=== PATIENT | female | born 1985 | race African-American/Black ===

== ENCOUNTER 2016-05-24 09:15 | Emergency (ER) | payer SELFPAY ==
[2016-05-24] MEDS ORDERED: DUONEB INH ONE (10:08)
[2016-05-24] MEDS ORDERED: SODIUM CHLORIDE 0.9% 1,000 ML ONE (10:56)
[2016-05-24] MEDS ORDERED: PEN G BENZ 1.2M UNITS/2 ML SYR IM ONE (11:10)
== END 2016-05-24 13:07 | disposition home or self-care (01) ==
LOC: ER 09:15
CPT/HCPCS: 36415; 71020; 94640; 96360; 96361; 96372